=== PATIENT | female | born 1995 | race Caucasian/White ===

== ENCOUNTER 2017-02-14 16:22 | Emergency (ER) | payer OTHER ==
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
--- NOTE | 2017-02-15 08:51 | CR ---
Left fourth finger: Three views of the left fourth finger were obtained. Comparison: No prior study. Joint spaces are preserved. Soft tissue swelling appears to be present. No fracture, dislocation or other bony abnormality is identified. Impression: 1. Mild soft tissue swelling. No bony abnormality is identified on left fourth finger study. Diagnostic code #2
== END 2017-02-14 18:15 | disposition home or self-care (01) ==
LOC: MERGE 16:22 → JD.ED 16:22
DX: S00.83XA Contusion of other part of head, initial encounter (principal); S50.01XA Contusion of right elbow, initial encounter; S60.042A Contusion of left ring finger without damage to nail, initial encounter; S00.81XA Abrasion of other part of head, initial encounter; S09.90XA Unspecified injury of head, initial encounter; V43.52XA Car driver injured in collision with other type car in traffic accident, initial encounter; Y92.410 Unspecified street and highway as the place of occurrence of the external cause
CPT/HCPCS: 73140-26-F3; 73140-F3; 99283; 99284